=== PATIENT | female | born 1985 | race Caucasian/White ===

== ENCOUNTER 2025-03-12 16:23 | Emergency (ER) | payer BC ==
[~2025-03-12] VITALS: Ht 162.6 cm; Wt 77.3 kg
[2025-03-12 16:26] VITALS: BP 140/80; PULSE 81; RESP 18; TEMP 98.9; O2SAT 97
[2025-03-12] MEDS ORDERED: AMOX-117 PO (17:50)
--- NOTE | 2025-03-12 17:51 | Physician Documentation ---
HPI ~ General Chief Complaint: Tooth Problem Stated Complaint: TOOTH PAIN Time Seen by MD: 16:48 OK to notify your PCP?: Yes Source: patient Mode of Arrival: POV Exam Limitations: no limitations History of Present Illness HPI Comment 39-year-old female with chief complaint upper dental pain which started a few days ago getting progressively worse which is why she decided to come to the ER today. She had problem with this tooth before but states it has been quite some time. No recent antibiotics. No recent dental procedures. She states I know I need to have the tooth pulled. Medication Reconciliation Allergies: Coded Allergies: No Known Allergies (Unverified , 03/12/25) Scheduled Amox Tr/Potassium Clavulanate (Augmentin 875-125 Tablet), 1 TAB PO Q12H Past Medical History Smoking Status: Never smoker Review of Systems All Other Systems at this time: Reviewed and Negative Physical Exam Vital Signs: Temperature: 98.9, Source: Oral, Heart Rate: 81, Respiratory Rate: 18, BP: 140/80, Pulse Oximetry: 97, Weight: 77.270 Physical Exam General Appearance: Alert, WD/WN. NAD. HEENT: NCAT, PERRL, EOMI. Left upper dental avulsion with surrounding erythema and edema of the gingiva. Posterior pharyngeal wall is normal. No facial swelling. Neck: Supple, trachea midline. No cervical lymphadenopathy Cardiovascular: RRR. No m/r/g. Lungs: CTAB. Breathing unlabored Extremities: Normal inspection. No edema. Skin: Warm/dry, normal color Neurological: Alert and oriented x4, normal gait. Psychiatric: Affect congruent with mood. Progress Results/Orders Results/Orders Completed Orders - GLENN NAVARRETE Amox Tr/Potassium Clavulanate (Augmentin (03/12/25 17:48) Medications Received in ER Medications (Trade) Dose Ordered Sig/Geoff Route PRN Reason Start Time Stop Time Status Last Admin Dose Admin (Augmentin 875-125mg tablet) 1 tab STAT STAT PO 03/12/25 17:48 03/12/25 17:49 DC 03/12/25 17:53 1 TAB Vital Signs 03/12/25 16:26 Temp 98.9 Pulse 81 Resp 18 B/P (MAP) 140/80 Pulse Ox 97 Medical Decision Making Differential Dx:Considerations: Include: Alveolar fracture, Alveolar osteitis, ANUG, Facial Cellulitis, Periapical abscess, Peridontal abscess, Post-extraction bleeding, Pulpitis, Tooth avulsion, Tooth eruption, Tooth Fracture, Trigeminal neuralgia, Tooth subluxation Departure Time of Disposition: 17:49 Disposition: 01 HOME / SELF CARE / HOMELESS Impression: Primary Impression: Dental abscess Condition: Stable Discharge Instructions: Dental Abscess Additional Instructions: AUGMENTIN SENT TO PHARMACY, WE GAVE YOU FIRST DOSAGE HERE SO NEXT DOSAGE IS TOMORROW AM F/U WITH DENTIST Referrals: NO PRIMARY CARE PROVIDER (PCP) Prescriptions Amox Tr/Potassium Clavulanate (Augmentin 875-125 Tablet) 1 Each Tablet 1 TAB PO Q12H for 10 Days, #20 TAB Prov: GLENN NAVARRETE 03/12/25 Education Educated: Patient Educated regarding: diagnosis, treatment, need for follow up Signature Scribe Signature: [place] Attestation: GLENN DIETZ Mar 12, 2025 17:51
[2025-03-12] MEDS: amox tr/potassium clavulanate 875/125mg TAB PO STA (17:53)
== END 2025-03-12 17:56 | disposition home or self-care (01) ==
LOC: ER 16:24
DX: K04.7 Periapical abscess without sinus (principal)
CPT/HCPCS: 99283